=== PATIENT | female | born 1960 ===

== ENCOUNTER 2020-05-12 15:08 | Outpatient (REF) | payer OTHER, BC, SELFPAY ==
[2020-05-15 16:28] LABS: SARS-CoV-2 RNA Undetected (Undetected); SARS-CoV-2 Specimen Source Nasopharynx
== END 2020-05-12 15:28 ==
LOC: NCHCN 15:08
PROVIDERS: PCP Family Medicine; Referring Provider Family Medicine; Visit Provider Family Medicine
DX: Z20.828 Contact with and (suspected) exposure to other viral communicable diseases (principal)
CPT/HCPCS: U0003